=== PATIENT | male | born 1985 | race Caucasian/White ===

== ENCOUNTER 2018-07-19 10:20 | Emergency (ER) | payer SELFPAY ==
[~2018-07-19] VITALS: Ht 167.6 cm; Wt 81.6 kg
--- NOTE | 2018-07-19 10:30 | NUR ---
Patient discharged to home in stable conditon. Written and verbal after care instructions given. Patient verbalizes understanding of instructions.
== END 2018-07-19 10:30 | disposition home or self-care (01) ==
LOC: ER 10:20
DX: R42 Dizziness and giddiness (principal); Z88.0 Allergy status to penicillin
CPT/HCPCS: A4663